=== PATIENT | female | born 1975 ===

== ENCOUNTER 2021-09-01 05:55 | Day surgery (SDC) | payer OTHER ==
[~2021-09-01] VITALS: Ht 162.6 cm; Wt 76.7 kg
[~2021-09-01 05:55] MED LIST: CLARITIN10 M1 PO; D3 + K2 DOTS 11 EACH PO; TOPROL XL25 M1 PO
== END 2021-09-01 11:40 | disposition home or self-care (01) ==
LOC: CIR.AMB 05:55
PROVIDERS: ATTEND Specialist
DX: D06.0 Carcinoma in situ of endocervix (principal); Z91.040 Latex allergy status; Z86.16 Personal history of COVID-19; J45.909 Unspecified asthma, uncomplicated; Z87.891 Personal history of nicotine dependence; G43.909 Migraine, unspecified, not intractable, without status migrainosus; G50.0 Trigeminal neuralgia